=== PATIENT | female | born 1945 | race Caucasian/White ===

== ENCOUNTER → 2018-02-27 12:44 | Outpatient (CLI) | payer MEDICARE, SELFPAY ==
--- NOTE | 2018-02-27 12:54 | CT_ITS ---
CT lung screening EXAM: CT LUNG LOW DOSE WO CONTRAST COMPARISON: 02/21/2017 HISTORY: 72-year-old asymptomatic female with a 6 pack-year smoking history ITS.REASON: CURRENT TOBACCO USE ORDERING PHYSICIAN: Edy Sloan MD PATIENT AGE: 72 years TECHNIQUE: The exam was performed on a GE Light Speed [address] scanner using 2.90 mGy CTDI. A low dose helical CT CHEST was performed on a multi-detector scanner. All CT scans at the facility use one or more dose reduction, viz: automated exposure control; ma/kV adjustment per patient size (including targeted exams where dose is matched to indication; i.e. head); or iterative reconstruction technique. The LDCT was performed in a facility that meets the criteria for the screening program. Data regarding this exam was submitted to ACR which is an approved registry. The order for this exam indicates that it came as a result of a lung cancer screening counseling shard decision-making visit that included all the elements required of such a visit including smoking cessation. The radiologist interpreting this exam meets the CMS criteria for the LDCT lung cancer screening program. The exam is reported using the Lung-RADS classification scale and reported to the ACR registry. NOTE: This study was performed for the specific purposes of lung cancer screening and is not an alternative to diagnostic chest CT. RADIATION DOSE: CTDI vol(CT dose Index-volume) = 2.90mG DLP (Dose Length Product) = 101.48 mGcm FINDINGS: FINDINGS: Calcified granulomas present in the right upper lobe. Small hyperdense nodule measuring 2 mm is present in the superior segment left lower lobe also likely due to a granuloma. No suspicious pulmonary nodules evident. No effusions or infiltrates. There is mild hyperinflation with attenuation of the peripheral pulmonary vessels consistent with obstructive chronic bronchitis. Calcified nodes are present in the mediastinum. No adenopathy IMPRESSION: 1. Lung RADS Category: 2, BENIGN 2. Other findings: Obstructive chronic bronchitis RECOMMENDATIONS: 12 month LDCT follow-up
== END ==
PROVIDERS: Family Provider Family Medicine; PCP Family Medicine; Visit Provider Family Medicine
DX: Z87.891 Personal history of nicotine dependence (principal); Z12.2 Encounter for screening for malignant neoplasm of respiratory organs

== ENCOUNTER → 2019-04-17 14:43 | Outpatient (CLI) | payer MEDICARE, SELFPAY ==
--- NOTE | 2019-04-17 15:51 | CT_ITS ---
CT lung screening EXAM: CT LUNG LOW DOSE WO CONTRAST HISTORY: ITS.REASON: H/O NICOTINE DEPENDENCE ORDERING PHYSICIAN: Edy Sloan MD PATIENT AGE: 73 years COMPARISON: 02/27/2018. TECHNIQUE: The exam was performed on a GE Light Speed [address] scanner using 3.0 mGy CTDI. A low dose helical CT CHEST was performed on a multi-detector scanner. All CT scans at the facility use one or more dose reduction, viz: automated exposure control, ma/kV adjustment per patient size (including targeted exams where dose is matched to indication, i.e. head), or iterative reconstruction technique. The LDCT was performed in a facility that meets the criteria for the screening program. Data regarding this exam was submitted to ACR which is an approved registry. The order for this exam indicates that it came as a result of a lung cancer screening counseling shard decision-making visit that included all the elements required of such a visit including smoking cessation. The radiologist interpreting this exam meets the CMS criteria for the LDCT lung cancer screening program. The exam is reported using the Lung-RADS classification scale and reported to the ACR registry. NOTE: This study was performed for the specific purposes of lung cancer screening and is not an alternative to diagnostic chest CT. RADIATION DOSE: CTDI vol(CT dose Index-volume) = 2.9mG DLP (Dose Length Product) = 94.55 mGcm FINDINGS: Indeterminate or Suspicious Lung Nodules(Category3-4B): None Indeterminate/Non-actionable Nodules(Category2): None Benign nodules(Category1)again seen are the punctate 1 mm calcified superior segment left lower lobe nodule and the somewhat larger 3 mm calcified nodule likely a granuloma in the base of the right upper lobe. LUNG PARENCHYMA Emphysema: Lungs are otherwise clear and normal. Airways disease: Not apparent Fibrosis: None OTHER ANATOMIC REGIONS Lymph Nodes: There are stable benign subcarinal calcified lymph nodes. Pleura: Unremarkable Cardiac: Unremarkable OTHER FINDINGS: No other pertinent findings evident IMPRESSION: 1. Lung RADS Category: 1 benign nodules. 2. Other findings: No other pertinent findings evident RECOMMENDATIONS: 6 monthd LDCT follow-up
== END ==
PROVIDERS: PCP Family Medicine; Visit Provider Family Medicine
DX: Z12.2 Encounter for screening for malignant neoplasm of respiratory organs (principal); Z87.891 Personal history of nicotine dependence

== ENCOUNTER 2024-10-29 10:18 | Emergency (ER) | payer MEDICARE, SELFPAY ==
[2024-10-29] VITALS (13 sets, daily range): BP systolic 199–231; BP diastolic 89–160; PULSE 68–86; RESP 18–20; TEMP 36.7–37; O2SAT 94–99; BMI 19.5
--- NOTE | 2024-10-29 10:25 | ECG_ITS ---
APPROVED REPORT Exam: Resting ECG HR:76 bpm ECG Measurements Heart Rate 76 AXES ND 129 P 58 QRSd 82 QRS 15 QT 346 T 71 QTc 376 Conclusion SINUS RHYTHM LEFT VENTRICULAR HYPERTROPHY AND ST-T CHANGE [VOLTAGE CRITERIA PLUS ST/T ABNORMALITY] ABNORMAL ECG UNCONFIRMED REPORT Electronically signed by : MIKI BORDEN, 10/30/2024 05:41:10
--- NOTE | 2024-10-29 10:29 | HMH.EDGENADL ---
Discharge Plan Disposition Patient Disposition: Home, Self-Care Condition: Good Prescriptions Prescriptions: New atorvastatin 40 mg tablet 40 mg PO DAILY Qty: 30 0RF Referrals Follow up/Referrals: Edy Sloan MD [Primary Care Provider] - See instructions Isa Belcher MD [Staff Physician] - See instructions Activity Restrictions/Add. Instructions Additional Instructions/Restrictions: Please start taking 81 mg aspirin daily and the atorvastatin. The neurology office will contact you/your son for a follow-up appointment. Follow-up with your primary care provider for further evaluation of your hypertension. Please return to ED if your symptoms worsen, change in location, change in severity, new symptoms develop or if you become concerned for your health. Clinical Impressions Clinical Impression: Occipital stroke Instructions Patient Instructions: DI for Stroke-Ischemic Print Language Print Language: Indonesian Discharge ED Provider: Johanne Dubose Adult HPI General Chief complaint: Weakness Stated complaint: dizzy eye sight blurry soa Time Seen by Provider: 10/29/24 10:21 History of Present Illness HPI narrative: Patient is a 78-year-old female presenting with blurred vision. Patient is accompanied by her [id number] at bedside. Patient states she does not have significant medical problems and only takes medication for hypothyroidism. Patient states she developed blurred vision in both eyes approximately 1 week ago. She feels that her vision has continued to worsen over that time. She wears corrective lenses and denies recent change in her prescription. She denies floaters, loss of vision, head trauma. She denies use of blood thinners. She denies irregular heart rhythm history. She also complains of feeling unsteady when she walks and that her head is swimming . She also states that her right ear had felt like it was clogged and she has been putting peroxide in it multiple times. She currently states that her ears feel normal. She does also complain of a slight sore throat. She denies fevers, chills, shortness of breath, chest pain. Related Data Previous Rx's ?Medication ?Instructions ?Recorded atorvastatin 40 mg tablet 40 mg PO DAILY #30 tabs 10/29/24 Allergies Allergy/AdvReac Type Severity Reaction Status Date / Time No Known Allergies Allergy Verified 10/29/24 10:38 [facility] Disclaimer: The information contained in this section may have been updated after the patient was seen, as this information can be updated by other users. Medical History (Updated 10/29/24 @ 13:27 by Johanne Dubose MD) Hypothyroid Surgical History (Updated 10/29/24 @ 10:59 by Brittany Zuniga RN) Hx of tonsillectomy Hx of appendectomy Tubal ligation status Social History Smoking Status: Current every day smoker alcohol intake: never current occupational status: retired Travel in the last 8 weeks: None ROS Obtained: Yes All systems reviewed & no additional complaints except as documented Physical Exam General General appearance: alert and in no apparent distress Head Head exam: atraumatic, normocephalic and normal inspection Eye Eye exam: Present normal appearance, PERRL and EOMI; Absent periorbital swelling ENT ENT exam: Present normal exam, normal oropharynx, mucous membranes moist, TM's normal bilaterally and normal external ear exam Neck Neck exam: Present normal inspection, full ROM and trachea midline; Absent meningismus or lymphadenopathy Chest Chest inspection: Present normal inspection and symmetric chest wall rise; Absent tenderness Respiratory Respiratory exam: Present normal lung sounds bilaterally; Absent respiratory distress or wheezes Cardiovascular Cardiovascular exam: Present regular rate and normal rhythm; Absent JVD Abdominal Exam Abdominal exam: Present soft and normal bowel sounds; Absent distention, tenderness or guarding Extremities Exam Extremities exam: Present normal inspection, full ROM and normal capillary refill; Absent calf tenderness Back Exam Back exam: Present normal inspection; Absent tenderness Neurological Exam Neurological exam: Present alert, oriented X3 and CN II-XII intact; Absent motor sensory deficit Expanded Neurological Exam Speech: Present fluid speech Motor strength - LUE: 5/5 Motor strength - RUE: 5/5 Motor strength - LLE: 5/5 Motor strength - RLE: 5/5 Upper motor neuron exam: Normal: pronator drift Sensory exam upper extremity: Normal: light touch Sensory exam lower extremity: Normal: light touch Spinal cord function: Absent saddle anesthesia Psychiatric Psychiatric exam: Present normal affect and normal mood Skin Skin exam: Present warm, dry, intact and normal color Lymphatic Lymphatic Findings: no adenopathy Medical Decision Making Medical Records Medical records reviewed: Yes I reviewed the patient's medical records. Screening: Per USPSTF and CDC recommendations, given the prevalence of disease in our region, it is our hospital?s policy to screen for HIV and viral Hepatitis for all patients aged 18 and over and those with ongoing risk factors. Shad Inquiry Pt receiving controlled substance: No Shad was queried for this patient: No Vital Signs: 10/29/24 10:19 10/29/24 10:29 10/29/24 10:30 Temperature 98.6 F Temperature Source Oral Pulse Rate 76 78 Pulse Rate [Radial] 86 Respiratory Rate 18 Blood Pressure 223/116 H 228/104 H Blood Pressure [Right Arm] 220/97 H Blood Pressure Mean Blood Pressure Mean [Right Arm] 138 Blood Pressure Source [Right Arm] Automatic Cuff Blood Pressure Position [Right Arm] Sitting 02 Sat by Pulse Oximetry 97 96 98 Oxygen Delivery Method Room Air 10/29/24 10:35 10/29/24 11:00 10/29/24 11:35 Temperature Temperature Source Pulse Rate 71 71 71 Pulse Rate [Radial] Respiratory Rate Blood Pressure 229/106 H 206/103 H 215/108 H Blood Pressure [Right Arm] Blood Pressure Mean 143 Blood Pressure Mean [Right Arm] Blood Pressure Source [Right Arm] Blood Pressure Position [Right Arm] 02 Sat by Pulse Oximetry 94 L 96 98 Oxygen Delivery Method Room Air Room Air 10/29/24 11:43 10/29/24 11:57 10/29/24 12:00 Temperature Temperature Source Pulse Rate 74 68 77 Pulse Rate [Radial] Respiratory Rate Blood Pressure 231/89 H 223/94 H 199/105 H Blood Pressure [Right Arm] Blood Pressure Mean Blood Pressure Mean [Right Arm] Blood Pressure Source [Right Arm] Blood Pressure Position [Right Arm] 02 Sat by Pulse Oximetry 99 99 98 Oxygen Delivery Method 10/29/24 12:30 10/29/24 12:49 10/29/24 13:00 Temperature Temperature Source Pulse Rate 74 74 73 Pulse Rate [Radial] Respiratory Rate Blood Pressure 206/160 H 225/96 H Blood Pressure [Right Arm] Blood Pressure Mean 177 Blood Pressure Mean [Right Arm] Blood Pressure Source [Right Arm] Blood Pressure Position [Right Arm] 02 Sat by Pulse Oximetry 99 99 99 Oxygen Delivery Method Room Air Room Air Lab Data Lab results reviewed: Yes I reviewed the patient's lab results. Lab Results 10/29/24 10:30: WBC 11.0 H, RBC 5.23, Hgb 15.9, Hct 47.1 H, MCV 90.1, MCH 30.4, MCHC 33.8, RDW 11.9, Plt Count 260, MPV 12.0 H, Neut % (Auto) 73.3, Lymph % (Auto) 16.5, [place] % (Auto) 8.8, Eos % (Auto) 0.6, Baso % (Auto) 0.4, Neut # (Auto) 8.1 H, Lymph # (Auto) 1.8, [place] # (Auto) 1.0, Eos # (Auto) 0.1, Baso # (Auto) 0.0, Sodium 140, Potassium 3.8, Chloride 105, Carbon Dioxide 25, Anion Gap 13.8, BUN 16, Creatinine 0.70, Estimated Creat Clear 38, Estimated GFR 81, Est GFR ( Amer) 98, Glucose 170 H, Calcium 10.0, Total Bilirubin 1.1, AST 35, ALT 26, Alkaline Phosphatase 96, Total Protein 7.3, Albumin 4.2, Globulin 3.1, Albumin/Globulin Ratio 1.4, TSH 0.02 L, Free T4 2.21 H, HCV Ab SLIME w/Rflx PCR Qn Negative, HIV Ag/Ab Combo Qual Negative 10/29/24 10:49: SARS-CoV-2 (PCR) Not detected, Influenza A Untype (PCR) Not detected, Influenza Type B (PCR) Not detected 10/29/24 10:30 10/29/24 10:30 Orders (Tests/Meds): ED MEDICATIONS Generic Name Dose Route Start Last Admin Trade Name Freq PRN Reason Stop Dose Admin Sodium Chloride 10 ml 10/29/24 10:38 Sodium Chloride 0.9% 10ml Flush Syringe IV 11/28/24 10:37 NEEDED PRN Maintain IV Site Discontinued Medications Generic Name Dose Route Start Last Admin Trade Name Freq PRN Reason Stop Dose Admin Hydralazine HCl 5 mg 10/29/24 11:24 10/29/24 11:39 Hydralazine 20mg/Ml Vial IV 10/29/24 11:25 5 mg ONCE ONE Administration Iopamidol 80 ml 10/29/24 11:38 10/29/24 11:39 Iopamidol-370 (76%);100ml Bottle IV 10/29/24 11:39 80 ml ONCE ONE Administration Sodium Chloride 10 ml 10/29/24 11:38 10/29/24 11:39 Sodium Chloride 0.9% 10ml Syr (Rad Only) IV 10/29/24 11:39 10 ml ONCE ONE Administration Sodium Chloride 50 ml 10/29/24 11:38 10/29/24 11:39 0.9 % Sodium Chloride 50 Ml Vial IV 10/29/24 11:39 50 ml ONCE ONE Administration ORDERS Category Date Time Status CT angio head Stat Cat Scan 10/29/24 10:[address] angio neck Stat Cat Scan 10/29/24 10:[address] head/brain wo con Stat Cat Scan 10/29/24 10:41 Completed CBC w/Auto Diff [Complete Blood Count Auto Diff] Stat Lab 10/29/24 10:30 Completed CMP [Comprehensive Metabolic Panel] Stat Lab 10/29/24 10:30 Completed Free T4 (Free Thyroxine) Stat Lab 10/29/24 10:30 Completed HIV Combo Stat Lab 10/29/24 10:30 Completed Hepatitis C Ab Qual. W/ RFX Stat Lab 10/29/24 10:30 Completed Rapid PCR Covid and Flu A/B Stat Lab 10/29/24 10:49 Completed TSH [Thyroid Stimulating Hormone] Stat Lab 10/29/24 10:30 Completed ECG Data Tracing #1: Sinus rhythm with a rate of 76, no QTc prolongation or evidence of acute ischemia Medical Decision Narrative: In summary, this is a 78-year-old female presenting with blurred vision. Patient has no significant past medical history aside from hypothyroidism taking Synthroid. Differential diagnosis includes but is not limited to, CRAO, CVA, intracranial mass, BPPV, macular degeneration, improper corrective lenses, among others. In order to adequately evaluate these concerns, patient evaluated with CBC, CMP, TSH/free T4, COVID/flu swab, CT head, CTA head/neck. Patient's primary provider was also contacted in order to attempt obtaining additional history. He was able to corroborate a similar story to what we had obtained in the department. He also confirmed that patient takes no medications for hypertension and it typically has systolics around 150 in his office. Patient on multiple different readings was found to be profoundly hypertensive with systolics in the 200s and diastolics in the 100s. Labs were reviewed by me and significant for slight leukocytosis at 11, no anemia or thrombocytopenia. CMP unremarkable. COVID/flu swab negative. Imaging reviewed by me and significant for bilateral occipital lobe infarct but does not appear new. No intracranial hemorrhage visualized. ABCD score 4 which is moderate risk. Upon reevaluation, patient remains at her baseline. I discussed the findings with the patient and her neighbor who was at bedside. We also discussed with her son on the phone. Based on the chronicity of these infarcts, patient does not require inpatient management at this time. Family, patient and neighbor feel that she can safely be helped at home. I also personally discussed the patient with the neurology office who plan to get her in to see Dr. Belcher within the next week for further evaluation. Patient family in agreement with this plan. I am hesitant to start the patient on antihypertensive medications as she is high risk for unwitnessed hypotensive episode and falls given the lability of her blood pressure reading history. Patient discharged with atorvastatin and aspirin recommendations. Johanne Dubose MD PGY-3, Emergency Medicine Critical Care Critical Care Time Critical Care Time: No
--- NOTE | 2024-10-29 10:32 | PC.NURSE ---
dr francis at bedside
--- NOTE | 2024-10-29 10:41 | CT_ITS ---
FINAL REPORT TECHNIQUE: thin section axial CT with and without IV contrast supplemented with multiplanar 3-D reconstruction of the head. This study was performed with techniques to keep radiation doses as low as reasonably achievable, (ALARA)individualized dose reduction techniques using automated exposure control or adjustment of mA and/or kV according to the patient's size were employed. CLINICAL HISTORY: blurred vision, gait instability COMPARISON: None FINDINGS: CTA: The cranial circulation is unremarkable. There is a normal intracranial branching pattern. No segmental stenosis is seen. There is no evidence of aneurysm. IMPRESSION: No evidence of large vessel occlusion. Reviewed, Interpreted and Dictated by Humberto Patel MD Transcribed by Sailaja Castrejon Authenticated and [facility]
--- NOTE | 2024-10-29 10:41 | CT_ITS ---
FINAL REPORT TECHNIQUE: NASCET technique utilized for stenosis evaluation. CLINICAL HISTORY: blurred vision, gait instability COMPARISON: None FINDINGS: The carotid bifurcations are widely patent. RIGHT CAROTID: No significant stenosis is seen of the cervical common or internal carotid artery. There is a small focus of calcification in the proximal right internal carotid artery. LEFT CAROTID: No significant stenosis seen of the cervical common or internal carotid artery. VERTEBRALS: The vertebrals are patent. No significant stenosis is present. IMPRESSION: No significant arterial abnormality. Reviewed, Interpreted and Dictated by Humberto Patel MD Transcribed by Sailaja Castrejon Authenticated and [facility]
--- NOTE | 2024-10-29 10:41 | CT_ITS ---
FINAL REPORT TECHNIQUE: Axial CT images were performed through the head. Coronal reformatted images were submitted. This study was performed with techniques to keep radiation doses as low as reasonably achievable (ALARA). Individualized dose reduction techniques using automated exposure control or adjustment of mA and/or kV according to the patient's size were employed. CLINICAL HISTORY: blurred vision, gait instability COMPARISON: None FINDINGS: There is mild atrophy. Patchy abnormal decreased attenuation is seen in the deep white matter bilaterally. There is encephalomalacia of the right occipital lobe. There is well-defined cytotoxic edema in the left occipital lobe. Findings are consistent with sequela of ischemic cortical infarcts left greater than right. The left is probably a subacute infarct. There is no evidence of hemorrhage. There is no abnormal extra-axial fluid seen. The sinuses are well aerated. IMPRESSION: Sequela from prior occipital infarcts, left greater than right, with the left appearing late subacute. Extensive changes of chronic microvascular ischemia. Reviewed, Interpreted and Dictated by Humberto Patel MD Transcribed by Sailaja Castrejon Authenticated and [facility]
--- NOTE | 2024-10-29 10:49 | PC.NURSE ---
covid/flu swab sent to lab
--- NOTE | 2024-10-29 10:52 | PC.NURSE ---
pt ambulatory to restroom with assistance; no complications
[2024-10-29 10:53] LABS: Coronavirus 19, PCR Not Detected (NotDetected); Influenza A, PCR Not Detected (NotDetected); Influenza B, PCR Not Detected (NotDetected)
[2024-10-29 11:09] LABS: Albumin Level 4.2 g/dl (3.5-5.0); Chloride 105 mmol/L (98-107); Potassium 3.8 mmoL/L (3.5-5.1); Sodium 140 mmol/L (136-145)
[2024-10-29 11:12] LABS: Alanine Aminotransferase 26 U/L (12-78); Albumin/Globulin Ratio 1.4 (1.1-1.8); Alkaline Phosphatase 96 U/L (38-126); Anion Gap 13.8 mEq/L (5-15); Aspartate Amino Transferase 35 U/L (14-36); Basophils % 0.4 % (0.1-2.0); Bilirubin,Total 1.1 mg/dl (0.2-1.3); Blood Urea Nitrogen 16 mg/dl (7-17); Carbon Dioxide 25 mmol/L (22.0-30.0); Creatinine Clearance Estimated 38 mL/min (50-200); Eosinophils # 0.1 K/mm3 (0.0-0.4); Eosinophils % 0.6 % (0.1-12.0); Estimated Glomerular Filt Rate 81 ml/min (>60); GFR (African American) 98 ML/MIN (>60); Globulin 3.1 g/dL (1.3-3.2); Hematocrit 47.1 % (37.0-47.0); Hemoglobin 15.9 g/dL (12.2-16.2); Lymphocytes # 1.8 K/mm3 (0.7-4.5); Lymphocytes % 16.5 % (10-50); Mean Corpuscular HGB Conc 33.8 g/dL (31.8-35.4); Mean Corpuscular Hemoglobin 30.4 pg (27.0-31.2); Mean Corpuscular Volume 90.1 fl (81-99); Monocytes % 8.8 % (1.7-9.3); Neutrophils # 8.1 K/mm3 (1.8-7.8); Neutrophils % 73.3 % (37.0-80.0); Platelet Count 260 K/mm3 (142-424); Red Blood Count 5.23 M/mm3 (4.20-5.40); Red Cell Distribution Width 11.9 % (11.5-17.5); Total Protein,Serum 7.3 g/dl (6.3-8.2)
[2024-10-29 11:13] LABS: Glucose 170 mg/dl (74-100)
--- NOTE | 2024-10-29 11:21 | PC.NURSE ---
pt to CT
--- NOTE | 2024-10-29 11:33 | PC.NURSE ---
PT RETURNED FROM CT
--- NOTE | 2024-10-29 11:34 | PC.NURSE ---
pt returned from CT
[2024-10-29] MEDS: SODIUM CHLORIDE 0.9% 10ML SYR (RAD ONLY) 10 ML IV (11:39)
[2024-10-29] MEDS: 0.9 % SODIUM CHLORIDE 50 ML VIAL IV (11:39)
[2024-10-29] MEDS: HYDRALAZINE 20MG/ML VIAL 5 MG IV (11:39)
[2024-10-29] MEDS: IOPAMIDOL-370 (76%);100ML BOTTLE 80 ML IV (11:39)
--- NOTE | 2024-10-29 12:08 | PC.NURSE ---
PT ASSISTED TO BR
[2024-10-29 12:13] LABS: Free T4 (Free Thyroxine) 2.21 ng/dl (0.78-2.19)
[2024-10-29 12:26] LABS: Thyroid Stimulating Hormone 0.02 uIU/mL (0.465-4.68)
[2024-10-29 12:35] LABS: HIV Combo NEGATIVE (Negative)
[2024-10-29 12:44] LABS: Hepatitis C Ab Qual. W/ RFX NEGATIVE (Negative)
--- NOTE | 2024-10-29 12:44 | PC.NURSE ---
pt ambulatory to restroom with assistance from family
--- NOTE | 2024-10-29 12:47 | PC.NURSE ---
pt ambulatory back to ED room 6 with family for assistance. Mahendra Reeder, [employer] at [facility] to hook patient back up to monitor.
--- NOTE | 2024-10-29 12:49 | PC.NURSE ---
Dr. Dubose at BS for update on POC.
== END 2024-10-29 13:47 | disposition home or self-care (01) ==
PROVIDERS: Emergency Provider Student in an Organized Health Care Education/Training Program; PCP Family Medicine
DX: I63.9 Cerebral infarction, unspecified (principal); R42 Dizziness and giddiness; R06.02 Shortness of breath; H53.8 Other visual disturbances; R26.81 Unsteadiness on feet; J02.9 Acute pharyngitis, unspecified
CPT/HCPCS: 70450; 70496; 70498; 80053; 84439; 84443; 85025; 86803; 87389; 87636; 93005; 96374; 99285; J0360; Q9967

== ENCOUNTER 2024-11-05 14:56 | Outpatient (CLI) | payer MEDICARE, SELFPAY | END 2024-11-05 23:59 | disposition home or self-care (01) | LOC: RT 14:57 | PROVIDERS: PCP Family Medicine; Visit Provider Specialist | DX: I47.10 Supraventricular tachycardia, unspecified (principal); R06.81 Apnea, not elsewhere classified; I10 Essential (primary) hypertension; I63.9 Cerebral infarction, unspecified | CPT/HCPCS: 93270; 93272 ==

== ENCOUNTER 2024-11-09 14:21 | Outpatient (CLI) | payer MEDICARE, SELFPAY ==
--- NOTE | 2024-11-09 14:25 | CA_ITS ---
APPROVED REPORT EXAM: Comprehensive 2D, Doppler, and color-flow Echocardiogram [employer]: Mary Walter RVT Ht: 5 ft 3 in Wt: 105lbs BSA: 1.47 BP: 206/92 mmHg Indications: HTN,HLD,SMOKER,TIA/CVA 2D Dimensions IVSd 0.77 cm F: 0.6-1.0 LVEF (Visual) 55.70 % PWd 0.83 cm F: 0.6 - 1.0 LA Volume 21.90 mL LVDd 4.21 cm F: 3.9 - 5.3 LA Volume Index 14.90 mL/m2 (M/F) 16-34 LVDs 3.00 cm F: 2.2 - 3.5 M-Mode Dimensions LA Diam 2.76 cm (1.9-4.0) TAPSE 2.10 (<1.7) LV Diastology E Decel Time 230 (160-240 msec) E/A Ratio 0.6 Aortic Valve AMBROSE Index 1.38 cm2/m2 AoV Peak Asael. 160.0 (50-130 cm/s) AI PHT 753.00 ms AO Peak GR. 10.20 mmHg AO Mean GR. 5.10 (<5 mmHg) AO VTI 26.7 (18-25 cm) AMBROSE (VTI) 2.09 (2.5-4.5 cm2) Mitral Valve MV E Max Asael. 75.0 (40-130 cm/s) MV A Velocity 121.0 (40-130 cm/s) E/A Ratio 0.62 MV PHT 67.0 ms Pulmonary Valve PV Peak Velocity 88.0 (50-150 cm/s) Tricuspid Valve TR P. Velocity 286.00 cm/s RAP Estimate 10.00 mmHg RVSP 42.70 mmHg Left Ventricle The left ventricle is normal size. The left ventricular systolic function is normal. The left ventricular ejection fraction is within the normal range. There is increased LV wall thickness. There is normal LV segmental wall motion. Transmitral Doppler flow pattern suggests impaired LV relaxation. LVEF is 55%. Right Ventricle The right ventricle is normal size. The right ventricular systolic function is normal. Atria The left atrium size is normal. The right atrium size is normal. There is no Doppler evidence of interatrial shunt. Aortic Valve Aortic valve is mildly thickened. There is no aortic valvular stenosis. Mild aortic regurgitation. Mitral Valve The mitral valve is normal in structure. No evidence of mitral valve stenosis. Mild mitral regurgitation. Tricuspid Valve The tricuspid valve leaflets are thin and pliable. Mild tricuspid regurgitation. RVSP is 30-35 mmHg. Pulmonic Valve The pulmonary valve is normal in structure. Trace pulmonic regurgitation. Great Vessels The aortic root is normal in size. The ascending aorta is not well-visualized. IVC is normal in size and collapses >50% with inspiration. Pericardium There is no pericardial effusion. Prominent coronary sinus is noted. This may reflect presence of persistent left SVC in the appropriate clinical setting. However, this study cannot conclusively rule this out. Other Information Study Quality: Fair Conclusion Normal biventricular systolic function. Mild AI, mild MR, mild TR. Prominent coronary sinus is noted. This may reflect presence of persistent left SVC in the appropriate clinical setting. However, this study cannot conclusively rule this out. In the setting of possible persistent left SVC, further evaluation with limited TTE + ultrasound enhancing agent (Definity) + bubble study specifically through the left arm, as well as CTV chest, are suggested. Electronically signed by : Jennifer Casarez MD 11/16/2024 12:51:37
== END 2024-11-09 23:59 | disposition home or self-care (01) ==
LOC: RT 14:22
PROVIDERS: PCP Family Medicine; Visit Provider Specialist
DX: I34.0 Nonrheumatic mitral (valve) insufficiency (principal); I35.1 Nonrheumatic aortic (valve) insufficiency; I36.1 Nonrheumatic tricuspid (valve) insufficiency; Z86.73 Personal history of transient ischemic attack (TIA), and cerebral infarction without residual deficits
CPT/HCPCS: 93306

== ENCOUNTER → 2024-12-03 13:40 | Outpatient (CLI) | payer MEDICARE, SELFPAY | LOC: SL 13:42 | PROVIDERS: PCP Family Medicine; Visit Provider Specialist | DX: I63.433 Cerebral infarction due to embolism of bilateral posterior cerebral arteries (principal); I10 Essential (primary) hypertension; E05.90 Thyrotoxicosis, unspecified without thyrotoxic crisis or storm | CPT/HCPCS: 94762 ==

== ENCOUNTER 2025-05-10 12:40 | Outpatient (CLI) | payer MEDICARE, SELFPAY ==
--- OUTSIDE RECORDS SUMMARY | 2025-02-02 06:00 | XMS_ITS ---
Author Organization [facility] Address [facility] [facility] [address] [place] [id number] Care Team Providers Care Home Health Rn Name Role Phone Edy Sloan Primary Care Provider Allergies No Known Allergies REASON FOR VISIT 4 week f/u Medications Medication SIG (Take, Route, Frequency, Duration) Notes Start Date End Date Status Vitamin D3 50 MCG (1999) 2 tab(s) ora lly once a day 02/25/2018 Active Aspirin 81 81 MG 1 tablet Orally Once a day Active Levothyroxine Sodium 75 MCG 1 tablet in the morning on an empty stomach Orally Once a day; Duration: 90 days 02/02/2025 Active amLODIPine Besylate 5 MG 1 tablet Orally Once a day 11/25/2024 Active Losartan Potassium 50 MG 1 tablet Orally Once a day 11/25/2024 Active Vital Signs Weight 106 lbs 02/02/2025 Blood pressure systolic 174 mm Hg 02/03/20 25 Blood pressure diastolic 92 mm Hg 025 Heart Rate 73 /min 02/02/2025 Height 62.75 in 02/02/2025 BMI 18.92 kg/m2 02/02/2025 Encounters Encounter Location Date Provider Diagnosis [facility] [address] [place] [id number] 02/02/2025 Edy Sloan Essential hypertensi on I10 ; Acquired hypothyroidism E03.9 ; Hyperlipidemia, unspecified hyperlipidemia type E78.5 ; Vitamin D deficiency E55.9 ; Cerebrovascular accident (CVA), unspecified mechanism I63.9 and BMI less than 19,adult Z68.1 Assessments Encounter Date Diagnosis (ICD Code) Assessment Notes Treatment Notes Treatment Clinical Notes Section Notes 02/02/2025 Essential hypertension (ICD-10 - I10) 02/02/2025 Acquired hypothyroidism (ICD-10 - E03.9) Recent labs reviewed, showed patient was in a hyperthyroid state, medication adjustments made, recheck labs in 2 months 02/02/2025 Hyperlipidemia, unspecified hyperlipidemia type (ICD-10 - E78.5) Plan to recheck labs in 2 months 02/02/2025 Vitamin D deficiency (ICD-10 - E55.9) 02/02/2025 Cerebrovascular accident (CVA), unspecified mechanism (ICD-10 - I63.9) 02/02/2025 BMI less than 19,adult (ICD-10 - Z68.1) Plan Of Treatment Medication Medication Name Sig Start Date Stop Date Notes Atorvastatin Calcium 40 MG 1 tablet Orally Once a day Vitamin D3 50 MCG (1999 UT) 2 tab(s) orally once a day 05/2018 Aspirin 81 81 MG 1 tablet Orally Once a day Levothyroxine Sodium 75 MCG 1 tablet in the morning on an empty stomach Orally Once a day; Duration: 90 days 02/02/2025 Levothyroxine Sodium 112 MCG 1 tablet in the morning on an empty stomach Orally Once a day 11/03/2024 amLODIPine Besylate 5 MG 1 tablet Orally Once a day 2024 Losartan Potassium 50 MG 1 tablet Orally Once a day 2024 Treatment Notes Assessment Notes Acquired hypothyroidism Recent labs revi ewed, showed patient was in a hyperthyroid state, medication adjustments made, recheck labs in 2 months Hyperlipidemia, unspecified hyperlipidemia type Plan to recheck labs in 2 months Next Appt Details Follow Up: 2 Months, Reason: Provider Name:Edy Oneal ry, 07/07/2025 01:30:00 PM, [address] [facility], [address], [place], [place], [id number], Progress Notes * Jumana GILESOB :1945 (79 yo F)Acc No.[id number]:02/02/2025 Progress Notes Patient: Jumana DONOVAN Provider: Jamilah Rodas:1945 A ge:79 Y S ex:Female Date:02/02/2025 Address:[address] [place] [address] [place], [id number] Subjective: * Chief Complaints: * 1 . 4 week f/u. * HPI: C ardiology: 79 year old female presents with c/o Blood Pressure Elevated?Pt here for 4 week f/u on hypertension. Pt has been checking bp at home 3-4 times daily and states it has been 130's/70-80. * ROS: D ERMATOLOGY: no R swapna. n o H adonay. G ASTROENTEROLOGY: no N ausea. n o V omiting. U ROLOGY: no D ifficulty urinating. n o B lood in urine. * Medical History: H ypothyroidism, s/p radioactive iodine treatment, Hypertension, Lichen planus treated 2012, Left hip arthritis, 40 pack year smoking history, Hyperlipidemia, Left foot drop, Bilateral occipital CVAs. * Surgical History: T hyroidectomy , Tonsillectomy , Appendectomy , Tubal Ligation . * Hospitalization/Major Diagno stic Procedure: D enies Past Hospitalization. * Family History: F ather: 89 yrs. M other: 87 yrs. 1 brother(s) , 1 sister(s) . 1 son(s) . . * Social History: C URRENT TOBACCO USE S moking Status: Patient does smoke, packs per day: 1, number of cigarettes per day: 10, Since age of: 16, Smoking preference: cigarettes. C affeine: yes, frequency:tea and coffee,qd. Home smoke detector use: yes. Marital Status: . Alcohol: Yes, Type: , Frequency: ,Years: , Determination:, occasional. * Medications: T aking Vitamin D3 50 MCG (1999 UT) Tablet 2 tab(s) orally once a day , Taking Aspirin 81 81 MG Tablet Delayed Release 1 tablet Orally Once a day , Taking Losartan Potassium 50 MG Tablet 1 tablet Orally Once a day , Taking amLODIPine Besylate 5 MG Tablet 1 tablet Orally Once a day , Not-Taking Atorvastatin Calcium 40 MG Tablet 1 tablet Orally Once a day , Not-Taking Levothyroxine Sodium 112 MCG Tablet 1 tablet in the morning on an empty stomach Orally Once a day , Medication List reviewed and reconciled with the patient * Allergies: N .K.D.A. Objective: * Vitals: W t:106, Temp:97.8, BP:174/92, HR:73, Nurse:ayo, Ht: 62.75, Repeat BP:144/72, BMI:18.92. * Examination: C ardiology: General Appearance: p leasant, NAD. H eart sounds: R RR, normal S1, S2. L ungs: c lear, no rales or wheezes. Assessment: * Assessment: 1. E ssential hypertension - I10 (Primary) 2 . A cquired hypothyroidism - E03.9 3 . H yperlipidemia, unspecified hyperlipidemia type - E78.5 ?4. V itamin D deficiency - E55.9 5 . C erebrovascular accident (CVA), unspecified mechanism - I63.9 6 . B ID less than 19,adult - Z68.1 Plan: * Treatment: 2. A cquired hypothyroidism Stop Levothyroxine Sodium Tablet, 112 MCG, 1 tablet in the morning on an empty stomach, Orally, Once a day; S tart Levothyroxine Sodium Tablet, 75 MCG, 1 tablet in the morning on an empty stomach, Orally, Once a day, 90 days, 90 Tablet, Refills 0. Notes: Recent labs reviewed, showed patient was in a hyperthyroid state, medication adjustments made, recheck labs in 2 months 3. H yperlipidemia, unspecified hyperlipidemia type Stop Atorvastatin Calcium Tablet, 40 MG, 1 tablet, Orally, Once a day. Notes: Plan to recheck labs in 2 months 4. V itamin D deficiency Continue Vitamin D3 Tablet, 50 MCG (1999 UT), 2 tab(s), orally, once a day. 5. C erebrovascular accident (CVA), unspecified mechanism Continue Aspirin 81 Tablet Delayed Release, 81 MG, 1 tablet, Orally, Once a day. * Procedure Codes: G 2211 Complex e/m visit add on, 3077F SYST BP = 140 MM HG6 IT, 3078F DIAST BP < 80 MM HG * Follow Up: 2 Months * Images: Billing Information: * Visit Code: 98148 Office Visit, Est Pt., Level 4. * Procedure Codes: G2211 Complex e/m visit add on. 3077F SYST BP = 140 MM HG6 IT. 3078F DIAST BP < 80 MM HG. * Electronic signature of Terese Sloan MD on 05/10/2025 at 12:42 PM EDT Sign off status: Pending * Provider: Randall Sloan M.D. Date: 02/02/2025 Generated for Serge weston/Liza/eTransmitting on: 05/10/2025 12:42 PM EDT History and Physical Notes * HPI (History of Present Illness) Category Sub-Category Detail Notes Category Not es Cardiology Blood Pressure Elevated Pt here for 4 week f/u on hypertension. Pt has been checking bp at home 3-4 times daily and states it has been 130's/70-80 Examination Category Sub-Category Detail Notes Category Not es Cardiology Lungs: clear, no rales or wheezes Heart sounds: RRR, normal S1, S2 General Appearance: pleasant, NAD
--- OUTSIDE RECORDS SUMMARY | 2025-04-05 10:00 | XMS_ITS ---
Author Organization [facility] Address [facility] [address] [place] [id number] Care Team Providers Care Battery Mechanic Name Role Phone Edy Sloan Primary Care Provider [phone] Allergies No Known Allergies Results Component Value Reference Range Notes P-T4 Free (thyroxine) Reviewed date:04/06/2025 02:28:29 PM Interpretation:Normal Performing Lab: Notes/Report: Test performed by [facility] [address] [place] [address] , [place] [address] Dayo Fall MD, Digital Marketing Executive CLIA: [id number] Thyroxine Free (free T4) 1.36 0.86-1.76 ng/dL P-TSH Reviewed date:04/06/2025 02:28:29 PM Interpretation:Normal Performing Lab: Notes/Report: Test performed by [facility] [address] [place] [address] , [place] [address] Dayo Fall MD, Digital Marketing Executive CLIA: [id number] TSH 3.17 0.43-5.25 mU/L REASON FOR VISIT 2 months Medications Medication SIG (Take, Route, Frequency, Duration) Notes Start Date End Date Status Levothyroxine Sodium 75 MCG 1 tablet in the morning on an empty stomach Orally Once a day 02/02/2025 Active Vitamin D3 50 MCG (1999) 2 tab(s) ora lly once a day 02/25/2018 Active Aspirin 81 81 MG 1 tablet Orally Once a day Active amLODIPine Besylate 5 MG 1 tablet Orally Once a day 11/25/2024 Active Losartan Potassium 50 MG 1 tablet Orally Once a day 11/25/2024 Active Vital Signs Weight 105.8 lbs 04/05/2025 Blood pressure systolic 160 mm Hg 04/05/20 25 Blood pressure diastolic 90 mm Hg 025 Heart Rate 70 /min 04/05/2025 Height 62.75 in 04/05/2025 BMI 18.89 kg/m2 04/05/2025 Encounters Encounter Location Date Provider Diagnosis [facility] [facility] [address] [place] [id number] 04/05/2025 Edy Sloan Acquired hypothyroid ism E03.9 and Essential hypertension I10 Assessments Encounter Date Diagnosis (ICD Code) Assessment Notes Treatment Notes Treatment Clinical Notes Section Notes 04/05/2025 Acquired hypothyroidism (ICD-10 - E03.9) 04/05/2025 Essential hypertension (ICD-10 - I10) Blood pressure journal Plan Of Treatment Medication Medication Name Sig Start Date Stop Date Notes Levothyroxine Sodium 75 MCG 1 tablet in the morning on an empty stomach Orally Once a day 02/02/2025 amLODIPine Besylate 5 MG 1 tablet Orally Once a day 2024 Losartan Potassium 50 MG 1 tablet Orally Once a day 2024 Treatment Notes Assessment Notes Essential hypertension Blood pressure liz Rock Appt Details Follow Up: 3 Months, Reason: Provider Name:Edy Oneal ry, 07/07/2025 01:30:00 PM, [address] [facility] [address] [facility], [address], [place], [phone], Progress Notes * Jumana GILESOB :1945 (79 yo F)Acc No.[id number]:04/05/2025 Progress Notes Patient: Patricia DONOVANdarrell Saez Provider: Randall Sloan M.D. :1945 A ge:79 Y S ex:Female Date:04/05/2025 Address:[address] [place] [address] [address] [place], [id number] Subjective: * Chief Complaints: * 1 . 2 months. * HPI: E ndocrinology: 79 year old female presents with c/o Hypothyroidism P t here to f/u. Pt's Levothyroxine was decreased to 75 mcg on 02/02. * ROS: D ERMATOLOGY: no R swapna. n o H adonay. G ASTROENTEROLOGY: no N ausea. n o V omiting. U ROLOGY: no D ifficulty urinating. n o B lood in urine. * Medical History: H ypothyroidism, s/p radioactive iodine treatment, Hypertension, Lichen planus treated 2012, Left Hip Arthritis, 40 pack year smoking history, Hyperlipidemia, Left foot drop, Bilateral occipital CVAs. * Surgical History: T hyroidectomy , Tonsillectomy , Appendectomy , Tubal Ligation . * Hospitalization/Major Diagno stic Procedure: D enies Past Hospitalization. * Family History: F ather: 89 yrs. M other: 87 yrs. 1 brother(s) , 1 sister(s) . 1 son(s) . . * Social History: C URRENT TOBACCO USE: Yes . C affeine: yes, frequency:tea and coffee,qd. Home smoke detector use: yes. Marital Status: . Alcohol: Yes, Type: , Frequency: ,Years: , Determination:, occasional. * Medications: T aking Levothyroxine Sodium 75 MCG Tablet 1 tablet in the morning on an empty stomach Orally Once a day , Taking Losartan Potassium 50 MG Tablet 1 tablet Orally Once a day , Taking amLODIPine Besylate 5 MG Tablet 1 tablet Orally Once a day , Taking Aspirin 81 81 MG Tablet Delayed Release 1 tablet Orally Once a day , Taking Vitamin D3 50 MCG (2000 UT) Tablet 2 tab(s) orally once a day , Medication List reviewed and reconciled with the patient * Allergies: N .K.D.A. Objective: * Vitals: W t: 105.8, Temp: 97.9, BP: 160/90, HR: 70, Nurse: kk, Ht: 62.75, BMI:18.89. * Examination: C ardiology: General Appearance: p leasant, NAD. H eart sounds: R RR, normal S1, S2. L ungs: c lear, no rales or wheezes. Assessment: * Assessment: 1. A cquired hypothyroidism - E03.9 (Primary) 2 . E ssential hypertension - I10 Plan: * Treatment: Value Reference Range T hyroxine Free (free T4) 1.36 0.86-1.76 - ng/d L * Samira Reeder 04/06/2025 02:27: 49 PM EDT > Pt informed ?LAB: P-TSH (Collection Date & Time - 04/05/2025 01:41 PM)?Normal* Value Reference Range T SH 3.17 0.43-5.25 - mU/L * Samira Reeder 04/06/2025 02:27: 49 PM EDT > Pt informed 2.?Essential hypertension? Continue Losartan Potassium Tablet, 50 MG, 1 tablet, Orally, Once a day;?Continue amLODIPine Besylate Tablet, 5 MG, 1 tablet, Orally, Once a day.?? Notes: Blood pressure journal?? * Procedure Codes: G 2211 Complex e/m visit add on, G8950 PREHTN/HTN BP DOC INDCD F/U DOC, G8753 MOST RECENT SYSTOLIC BP >= 140MM HG, G8755 MOST RECENT DIASTOLIC BP >= 90MM HG * Follow Up: 3 Months * Images: Billing Information: * Visit Code: 63774 Office Visit, Est Pt., Level 3. * Procedure Codes: G2211 Complex e/m visit add on. G8950 PREHTN/HTN BP DOC INDCD F/U DOC. G8753 MOST RECENT SYSTOLIC BP >= 140MM HG. G8755 MOST RECENT DIASTOLIC BP >= 90MM HG. * Electronic signature of Terese Sloan MD on 05/10/2025 at 12:42 PM EDT Sign off status: Pending * Provider: Randall Sloan M.D. Date: 0 04/05/2025 Generated for Serge weston/Liza/eTransmitting on: 0 05/10/2025 12:42 PM EDT History and Physical Notes * HPI (History of Present Illness) Category Sub-Category Detail Notes Category Not es Endocrinology Hypothyroidism Pt here to f/u. Pt's Levothyroxine was decreased to 75 mcg on 02/02 Examination Category Sub-Category Detail Notes Category Not es Cardiology Lungs: clear, no rales or wheezes Heart sounds: RRR, normal S1, S2 General Appearance: pleasant, NAD
--- OUTSIDE RECORDS SUMMARY | 2025-04-14 10:46 | XMS_ITS ---
[facility] [address] [facility] [address] [place] [id number] Care Team Providers Care Planer Offbearer Name Role Phone Edy Sloan Primary Care Provider REASON FOR VISIT BDS Encounters Encounter Location Date Provider Diagnosis [facility] [address] [facility] [address] [place] [id number] 04/14/2025 Edy Sloan Screening for osteoporosis Z13.820 Assessments Encounter Date Diagnosis (ICD Code) Assessment Notes Treatment Notes Treatment Clinical Notes Section Notes 04/14/2025 Screening for osteoporosis (ICD-10 - Z13.820) Plan Of Treatment Pending Test Test Name Order Date Bone density 04/14/2025 Next Appt Details Provider Name:Edy Oneal ry, 07/07/2025 01:30:00 PM, [address] [facility] [address], [address], [place], [phone], Progress Notes * Jumana GILESOB :1945 (79 yo F)Acc No.[id number]:04/14/2025 Patient: Gloria IBARRA Jumana Saez :1945 A ge:79 Y S ex:Female Address:[address] [place] [address] [place], [id number] Subjective: * Chief Complaints: * B DS * Medical History: * Surgical History: * Hospitalization/Major Diagno stic Procedure: * Medications: Objective: * Vitals: * Physical Examination: Assessment: * Assessment: 1. S creening for osteoporosis - Z13.820 (Primary) Plan: * Treatment: * Procedure Codes: * true * Date: Generated for Serge weston/Liza/Adelita on: 0 05/10/2025 12:42 PM EDT
--- NOTE | 2025-05-10 12:43 | XR_ITS ---
FINAL REPORT CLINICAL HISTORY: SCREENING COMPARISON: None FINDINGS: Using L1-4, the bone mineral density of the spine is 1.036 g/cm2, corresponding to T-score of -0.1. Using the left hip, the bone mineral density of the femoral neck is 0.532 g/cm2, corresponding to a T-score of -2.9. Using the right hip, the bone mineral density of the femoral neck is 0.5-1 g/cm2, corresponding to a T-score of -3.0. NOTE: T-score: Standard deviation compared with peak bone mass of young adult mean. *Following the recommendations of the International Society of Bone densitometry, classification of hip BMD is based on the lower of two T-scores; total hip or femoral neck. IMPRESSION: Diminished bone mineral density of the bilateral hips consistent with osteoporosis. Normal bone mineral density of the lumbar spine. Reviewed, Interpreted and Dictated by Gm Shah MD Transcribed by Robyn Neely Authenticated and [facility]
--- OUTSIDE RECORDS SUMMARY | 2025-05-10 12:43 | XMS_ITS | Patient Health Record ---
[facility] [address] [place] [id number] Care Team Providers Care Cotton Factor Name Role Phone Edy Sloan Primary Care Provider Heidi Garcia Maximo Unavailable [phone] Allergies No Known Allergies Results Component Value Reference Range Notes P-T4 Free (thyroxine) Reviewed date:04/06/2025 02:28:29 PM Interpretation:Normal Performing Lab: Notes/Report: Test performed by [facility] [address] [place] [address] , [place] [address] Dayo Fall MD, [employer] CLIA: [id number] Thyroxine Free (free T4) 1.36 0.86-1.76 ng/dL P-TSH Reviewed date:04/06/2025 02:28:29 PM Interpretation:Normal Performing Lab: Notes/Report: Test performed by [facility] [address] [place] [address] , [facility] [place] [address] Dayo Fall MD, [employer] CLIA: [id number] TSH 3.17 0.43-5.25 mU/L P-T4 Free (thyroxine) Reviewed date:01/26/2025 12:26:17 PM Interpretation:2.25 Performing Lab: Notes/Report: Test performed by [facility] [address] [place] [address] , [facility] [place] [address] Dayo Fall MD, [employer] CLIA: [id number] Thyroxine Free (free T4) 2.25 0.86-1.76 ng/dL P-Lipid Panel Reviewed date:01/26/2025 12:26:17 PM Interpretation:non-hdl 132 Performing Lab: Notes/Report: Test performed by [facility], [address] [place] , [place] [address] Dayo Fall MD, [employer] CLIA: [id number] Cholesterol 187 <200 mg/dL Triglycerides 93 <150 mg/dL HDL Cholesterol 55 >39 mg/dL Cholesterol / HDL Ratio 3.40 0.00-4.44 Ratio Non-HDL Cholesterol 132 <130 mg/dL LDL Cholesterol (Calculation) 113 <130 mg/dL LDL Cholesterol Levels* Less than 100 mg/dL Optimal 100 to 129 mg/dL Near Optimal/ Above Optimal 130 to 159 mg/dL Borderline High 160 to 189 mg/dL High 190 mg/dL and above Very High * Categories as recommended by the 2004 ATPIII guidelines LDL/HDL Ratio 2.1 <3.3 Ratio LDL Cholesterol Patient History Test Date: 07/29/2024 LDL Results: 127 Units: mg/dL % Change: - Test Date: 01/25/2025 LDL Results: 113 Units: mg/dL % Change: -11% P-TSH Reviewed date:01/26/2025 12:26:18 PM Interpretation:0.04 Performing Lab: Notes/Report: Test performed by [facility] [address] [place] [address] , [address], [place] [address] Dayo Fall MD, [employer] CLIA: [id number] TSH 0.04 0.43-5.25 mU/L CBC Venipuncture (in house) Reviewed date:07/29/2024 04:32:39 PM Interpretation: Performing Lab: Notes/Report: wbc 11.2 3.5 - 10 lymph 23.5% 15 - 50 mid 6.8% 2 - 15 gran 69.7% 35 - 80 rbc 5.07 3.5 - 5.5 hgb 15.8 11.5 - 16.5 hct 47.5 35 - 55 mcv 93.7 75 - 100 mch 31.2 25 - 35 mchc 33.3 31 - 38 platlet 220 100 - 400 P-Comprehensive Metabolic Pa maranda (CMP) Reviewed date:07/30/2024 03:54:20 PM Interpretation:Normal Performing Lab: Notes/Report: Test performed by [facility] [address] [place] [address] , [address], [place] [address] Dayo Fall MD, [employer] CLIA: [id number] Sodium 141 135-145 mmol/L Potassium 4.2 3.5-5.3 mmol/L Chloride 103 97-108 mmol/L CO2 28 22-32 mmol/L Glucose 85 65-99 mg/dL BUN 14 8-23 mg/dL Creatinine 0.71 0.50-1.00 mg/dL Calcium 9.7 8.6-10.4 mg/dL eGFR by Creatinine 88 >59 mL/min/1.73m2 Protein 6.9 6.0-8.3 g/dL Albumin 4.2 3.5-5.3 g/dL Alkaline Phosphatase 97 35-121 IU/L ALT (SGPT) 15 <5-47 IU/L AST (SGOT) 17 <5-40 IU/L Bilirubin, Total 0.8 <0.2-1.2 mg/dL A/G Ratio 1.6 1.1-2.5 P-T4 Free (thyroxine) Reviewed date:07/30/2024 03:54:20 PM Interpretation:Normal Performing Lab: Notes/Report: Test performed by [facility] [address] [place] [address] [place] [address] Dayo Fall MD, [employer] CLIA: [id number] Thyroxine Free (free T4) 1.45 0.86-1.76 ng/dL P-Lipid Panel Reviewed date:07/30/2024 03:54:21 PM Interpretation:chol 205, non-hdl 149 Performing Lab: Notes/Report: Test performed by [facility] [address] [place] , [place] [address] Dayo Fall MD, [employer] CLIA: [id number] Cholesterol 205 <200 mg/dL Triglycerides 111 <150 mg/dL HDL Cholesterol 56 >39 mg/dL Cholesterol / HDL Ratio 3.66 0.00-4.44 Ratio Non-HDL Cholesterol 149 <130 mg/dL LDL Cholesterol (Calculation) 127 <130 mg/dL LDL Cholesterol Levels* Less than 100 mg/dL Optimal 100 to 129 mg/dL Near Optimal/ Above Optimal 130 to 159 mg/dL Borderline High 160 to 189 mg/dL High 190 mg/dL and above Very High * Categories as recommended by the 2004 ATPIII guidelines LDL/HDL Ratio 2.3 <3.3 Ratio LDL Cholesterol Patient History Test Date: 07/29/2024 LDL Results: 127 Units: mg/dL % Change: - P-TSH Reviewed date:07/30/2024 03:54:21 PM Interpretation:12.40 Performing Lab: Notes/Report: Test performed by [facility] [address] , [address], [place] [address] Dayo Fall MD, [employer] CLIA: [id number] TSH 12.40 0.43-5.25 mU/L P-Microalbumin/Creatinine, R andom Urine Sample Reviewed date:07/30/2024 03:54:21 PM Interpretation:Normal Performing Lab: Notes/Report: Test performed by [facility] [address] , [address], [place] [address] Dayo Fall MD, [employer] CLIA: [id number] Albumin/Creatinine Ratio, Urine 11 0-30 ug/m g Microalbumin, Urine, Random 0.7 Creatinine, Urine 61.8 P-Vitamin D 25-Hydroxy Reviewed date:07/30/2024 03:54:21 PM Interpretation:24.5 Performing Lab: Notes/Report: Test performed by [facility] [address] , [address], [place] [address] Dayo Fall MD, [employer] CLIA: [id number] Vitamin D 25-Hydroxy 24.5 30.0-100.0 ng/mL Interpretation of Vitamin D 25 OH: < 20 ng/mL - Deficiency 20 - 29 ng/mL - Insufficiency 30 - 100 ng/mL - Sufficiency > 100 ng/mL - Super-therapeutic- toxicity may occur above this level. Clinical correlation required. Medications Medication SIG (Take, Route, Frequency, Duration) Notes Start Date End Date Status Vitamin D3 50 MCG (1999) 2 tab(s) ora lly once a day 02/25/2018 Active Aspirin 81 81 MG 1 tablet Orally Once a day Active amLODIPine Besylate 5 MG 1 tablet Orally Once a day 11/25/2024 Active Losartan Potassium 50 MG 1 tablet Orally Once a day 11/25/2024 Active Levothyroxine Sodium 75 MCG 1 tablet in the morning on an empty stomach Orally Once a day; Duration: 90 days 02/02/2025 Active Immunizations Vaccine Route Administration Date Status Comme nts Prevnar (PCV20) IM Intramuscular 09/28/2022 Administered Fluzone High Dose (65yr and older) IM Intramuscular 06/30/2021 Administered Fluzone High Dose (65yr and older) IM Intramuscular 09/28/2022 Administered DT, 7 YEARS OR OLDER Unknown 12/23/1996 Administered COVID 19 Moderna Unknown 12/28/2020 Administered COVID 19 Moderna Unknown 08/30/2021 Administered Problems Problem Type SNOMED Code ICD Code Onset Dates Problem Status W/U Status Risk Notes Problem Vitamin D deficiency (31534679) Vitamin D deficiency (E55.9) Active confirmed Problem Essential hypertension (05681121) Essential hypertension (I10) Active confirmed Problem History of anemia (979864792) History of anemia (Z86.2) Active confirmed Problem Acquired hypothyroidism (833731205) Acquired hypothyroidism (E03.9) Active confirmed Problem Chronic fatigue syndrome (20918127) Chronic fatigue (R53.82) Active confirmed Problem Hyperlipidaemia (87506889) Hyperlipidemia, unspecified hyperlipidemia type (E78.5) Active confirmed Problem Cigarette smoker (51828844) Cigarette smoker (F17.210) Active confirmed Problem Cerebrovascular accident (555531031) Cerebrovascular accident (CVA), unspecified mechanism (I63.9) Active confirmed Problem Lung cancer screening declined (situation) (87067064254885394 ) Lung cancer screening declined by patient (Z53.20) Active confirmed Problem Colon cancer screening declined (79062632012691) Colon cancer screening declined (Z53.20) Active confirmed Problem Cervical cancer Papanicolaou smear screening declined (situation) (832490268072174) Cervical cancer screening declined (Z53.20) Active confirmed Problem Mammogram declined (situation) (382693995) Screening mammography declined (Z53.20) Active confirmed Problem Cerebral infarction due to embolism of cerebral arteries (681492003) 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) Active confirmed Vital Signs Heart Rate 70 /min 04/05/2025 Blood pressure diastolic 90 mm Hg 04/05/2025 Height 62.75 in 04/05/2025 Blood pressure systolic 160 mm Hg 04/05/2025 Weight 105.8 lbs 04/05/2025 BMI 18.89 kg/m2 04/05/2025 Encounters Encounter Location Date Provider Diagnosis [facility] [address] [place], [place] [id number] 07/29/2024 Edy [place] Acquired hypothyroid ism E03.9 ; Vitamin D deficiency E55.9 ; Hyperlipidemia, unspecified hyperlipidemia type E78.5 ; Essential hypertension I10 ; Cigarette smoker F17.210 ; Lung cancer screening declined by patient Z53.20 ; Colon cancer screening declined Z53.20 ; Cervical cancer screening declined Z53.20 and Screening mammography declined Z53.20 [facility] [address] [place], [place] [id number] 11/03/2024 R Maximo Garcia Essential hypertensi on I10 ; Acquired hypothyroidism E03.9 ; Cerebrovascular accident (CVA) due to bilateral embolism of posterior cerebral arteries I63.433 ; Weight loss R63.4 and Cigarette smoker F17.210 [facility] [address] [place], [place] [id number] 11/11/2024 Edy [place] Essential hypertensi on I10 and Cerebrovascular accident (CVA), unspecified mechanism I63.9 [facility] [address] [place], [place] [id number] 11/25/2024 Edy [place] Essential hypertensi on I10 [facility] [address] [place], [place] [id number] 12/23/2024 Edy [place] Essential hypertensi on I10 [facility] [address] [facility] [address] [place], [place] [id number] 01/25/2025 Edy [place] Acquired hypothyroid ism E03.9 and Hyperlipidemia, unspecified hyperlipidemia type E78.5 [facility] [address] [place], [place] [id number] 02/02/2025 Edy [place] Essential hypertensi on I10 ; Acquired hypothyroidism E03.9 ; Hyperlipidemia, unspecified hyperlipidemia type E78.5 ; Vitamin D deficiency E55.9 ; Cerebrovascular accident (CVA), unspecified mechanism I63.9 and BMI less than 19,adult Z68.1 [facility] [address] [place], [place] [id number] 04/05/2025 Edy [place] Acquired hypothyroid ism E03.9 and Essential hypertension I10 [facility] [address] [place], [place] [id number] 07/30/2024 Edy [place] Acquired hypothyroid ism E03.9 [facility] [address] [place], [place] [id number] 01/22/2025 Edy [place] [facility] [address] [place], [place] [id number] 01/26/2025 Edy [place] [facility] [address] [place], [place] [id number] 04/14/2025 Edy [place] Screening for osteoporosis Z13.820 [facility] [address] [place], [place] [id number] 05/03/2025 Edy [place] Acquired hypothyroid ism E03.9 Assessments Encounter Date Diagnosis (ICD Code) Assessment Notes Treatment Notes Treatment Clinical Notes Section Notes 07/29/2024 Vitamin D deficiency (ICD-10 - E55.9) 07/29/2024 Acquired hypothyroidism (ICD-10 - E03.9) 07/30/2024 Acquired hypothyroidism (ICD-10 - E03.9) 11/03/2024 Essential hypertension (ICD-10 - I10) Monitor and record blood pressure readings twice daily at home and bring diary to next office visit. 11/03/2024 Acquired hypothyroidism (ICD-10 - E03.9) 11/11/2024 Essential hypertension (ICD-10 - I10) Not at goal today. BP journal 11/11/2024 Cerebrovascular accident (CVA), unspecified mechanism (ICD-10 - I63.9) Patient to keep follow up with Dr. Belcher 11/25/2024 Essential hypertension (ICD-10 - I10) 02/02/2025 Essential hypertension (ICD-10 - I10) 02/02/2025 Acquired hypothyroidism (ICD-10 - E03.9) Recent labs reviewed, showed patient was in a hyperthyroid state, medication adjustments made, recheck labs in 2 months 04/14/2025 Screening for osteoporosis (ICD-10 - Z13.820) 05/03/2025 Acquired hypothyroidism (ICD-10 - E03.9) 04/05/2025 Essential hypertension (ICD-10 - I10) Blood pressure journal 04/05/2025 Acquired hypothyroidism (ICD-10 - E03.9) 12/23/2024 Essential hypertension (ICD-10 - I10) 11/03/2024 Cerebrovascular accident (CVA) due to bilateral embolism of posterior cerebral arteries (ICD-10 - I63.433) Dr. Belcher is arranging an echocardiogram and Holter monitor. 01/25/2025 Acquired hypothyroidism (ICD-10 - E03.9) 02/02/2025 Hyperlipidemia, unspecified hyperlipidemia type (ICD-10 - E78.5) Plan to recheck labs in 2 months 07/29/2024 Hyperlipidemia, unspecified hyperlipidemia type (ICD-10 - E78.5) 07/29/2024 Essential hypertension (ICD-10 - I10) 02/02/2025 Vitamin D deficiency (ICD-10 - E55.9) 11/03/2024 Weight loss (ICD-10 - R63.4) 01/25/2025 Hyperlipidemia, unspecified hyperlipidemia type (ICD-10 - E78.5) 11/03/2024 Cigarette smoker (ICD-10 - F17.210) 02/02/2025 Cerebrovascular accident (CVA), unspecified mechanism (ICD-10 - I63.9) 07/29/2024 Cigarette smoker (ICD-10 - F17.210) 07/29/2024 Lung cancer screening declined by patient (ICD-10 - Z53.20) 02/02/2025 BMI less than 19,adult (ICD-10 - Z68.1) 07/29/2024 Colon cancer screening declined (ICD-10 - Z53.20) 07/29/2024 Cervical cancer screening declined (ICD-10 - Z53.20) 07/29/2024 Screening mammography declined (ICD-10 - Z53.20) Plan Of Treatment Pending Test Test Name Order Date Bone density 04/14/2025 Next Appt Details Provider Name:Edy Oneal ry, 07/07/2025 01:30:00 PM, [address], [address], [place], [id number], Insurance Providers Payer Name Payer Address Payer Phone Subscriber Number Group Number Insured Name Patient Relationship to Insured Coverage Start Date Coverage End Date MEDICARE PART B [address] [address] [place] [id number] Jumana So Self - patient is the insured [facility] [employer] [address] [place] [address] [phone] [id number] Jumana So Self - patient is the insured Medical (General) History Medical History History ICD Code Hypothyroidism, s/p radioactive iodine t reatment Hypertension Lichen planus treated 2012 Left Hip Arthritis 40 pack year smoking history hyperlipidemia Left foot drop Bilateral occipital CVAs Surgical History Surgery Date(Month/Year) Thyroidectomy Tonsillectomy Appendectomy Tubal Ligation Hospitalization History Reason Date(Month/Year)
== END 2025-05-10 23:59 | disposition home or self-care (01) ==
LOC: RAD 12:41
PROVIDERS: PCP Family Medicine; Visit Provider Family Medicine
DX: M81.0 Age-related osteoporosis without current pathological fracture (principal)
CPT/HCPCS: 77080